=== PATIENT | male | born 1945 | race Asian ===

== ENCOUNTER 2017-02-06 20:21 | Outpatient (CLI) | payer OTHER ==
[~2017-02-06 20:21] MED LIST: ACYCLOVIR800 MG OR; CIPRO250 MG PO; CRESTOR5 MG PO; LISI20TA24 PO
== END 2017-02-06 20:27 | disposition short-term general hospital (02) ==
LOC: AMB 20:21
DX: R40.20 Unspecified coma (principal)
CPT/HCPCS: A0425; A0427

== ENCOUNTER 2017-02-06 20:30 | Emergency (ER) | payer OTHER ==
[~2017-02-06] VITALS: Ht 170.2 cm; Wt 66.7 kg
[2017-02-06 21:11] LABS: PLATELET COUNT 182 K/uL (142-355)
[2017-02-06 21:22] LABS: PARTIAL THROMBOPLASTIN TIME 22.6 SECONDS (24.5-33.6)
[2017-02-06 21:24] LABS: POTASSIUM 3.6 mmol/L (3.6-5.2); SODIUM 133 mmol/L (136-145)
[2017-02-06 22:38] VITALS: BP 184/95; TEMP 98.7
== END 2017-02-06 22:38 | disposition home or self-care (01) ==
LOC: ED 20:30
DX: F10.129 Alcohol abuse with intoxication, unspecified (principal); S42.295A Other nondisplaced fracture of upper end of left humerus, initial encounter for closed fracture; R00.0 Tachycardia, unspecified
CPT/HCPCS: 80053; 80307; 80320; 81000; 82550; 82553; 84484; 85027; 85610; 85730; 93005; 96360; 99284; G0479

== ENCOUNTER 2017-04-21 09:07 | Outpatient (CLI) | payer OTHER | END 2017-04-21 10:15 | disposition home or self-care (01) | LOC: LABW 09:07 | PROVIDERS: Nurse Practitioner Adult Health | DX: I25.10 Atherosclerotic heart disease of native coronary artery without angina pectoris (principal); E78.2 Mixed hyperlipidemia | CPT/HCPCS: 36415; 80061; 80076 ==

== ENCOUNTER 2017-09-11 22:34 | Outpatient (CLI) | payer OTHER ==
[2017-09-11] MEDS ORDERED: AMLO2.5T PO (23:00)
== END 2017-09-11 22:40 | disposition short-term general hospital (02) ==
LOC: AMB 22:34
DX: R40.4 Transient alteration of awareness (principal)
CPT/HCPCS: A0425; A0427

== ENCOUNTER 2017-09-11 22:45 | Emergency (ER) | payer OTHER ==
[~2017-09-11] VITALS: Ht 172.7 cm; Wt 65.8 kg
[2017-09-11] MEDS ORDERED: AMLO2.5T PO (23:00)
[2017-09-11 23:27] LABS: PLATELET COUNT 150 K/uL (142-355)
[2017-09-11 23:34] LABS: POTASSIUM 3.9 mmol/L (3.6-5.2)
[2017-09-12 01:05] VITALS: BP 138/75; TEMP 97.3
== END 2017-09-12 01:05 | disposition home or self-care (01) ==
LOC: ED 22:45
DX: F10.10 Alcohol abuse, uncomplicated (principal)
CPT/HCPCS: 36415; 80053; 80307; 80320; 81000; 85027; 93005; 96360; 96374; 96375; 99284; G0479; J3411

== ENCOUNTER 2018-11-02 09:21 | Outpatient (CLI) | payer OTHER ==
[~2018-11-02 09:21] MED LIST changes: +AMLO2.5T PO
== END 2018-11-02 21:33 | disposition home or self-care (01) ==
LOC: LABW 09:21
PROVIDERS: Nurse Practitioner Adult Health
DX: I25.10 Atherosclerotic heart disease of native coronary artery without angina pectoris (principal); E78.2 Mixed hyperlipidemia; Z79.899 Other long term (current) drug therapy
CPT/HCPCS: 36415; 80061; 80076

== ENCOUNTER 2019-01-17 11:27 | Outpatient (CLI) | payer OTHER | END 2019-01-17 22:48 | disposition home or self-care (01) | LOC: RESP 11:27 | DX: R00.2 Palpitations (principal); I65.29 Occlusion and stenosis of unspecified carotid artery | CPT/HCPCS: 93225 ==

== ENCOUNTER 2019-01-24 08:50 | Outpatient (CLI) | payer OTHER | END 2019-01-24 21:03 | disposition home or self-care (01) | LOC: US 08:50 | DX: R00.2 Palpitations (principal); I65.29 Occlusion and stenosis of unspecified carotid artery ==

== ENCOUNTER 2019-02-07 08:58 | Outpatient (CLI) | payer OTHER | END 2019-02-07 23:18 | disposition home or self-care (01) | LOC: LABW 08:58 | PROVIDERS: Nurse Practitioner Adult Health | DX: I25.10 Atherosclerotic heart disease of native coronary artery without angina pectoris (principal); E78.2 Mixed hyperlipidemia; Z79.899 Other long term (current) drug therapy | CPT/HCPCS: 36415; 80061; 80076 ==

== ENCOUNTER 2021-02-17 11:07 | Outpatient (CLI) | payer OTHER | END 2021-02-17 19:46 | disposition home or self-care (01) | LOC: LABW 11:07 | PROVIDERS: ATTEND Nurse Practitioner | DX: I25.10 Atherosclerotic heart disease of native coronary artery without angina pectoris (principal); Z79.899 Other long term (current) drug therapy | CPT/HCPCS: 36415; 80061; 80076 ==

== ENCOUNTER 2021-08-08 10:02 | Outpatient (CLI) | payer OTHER | END 2021-08-08 19:41 | disposition home or self-care (01) | LOC: RESP 10:02 | PROVIDERS: ATTEND Nurse Practitioner | DX: I25.10 Atherosclerotic heart disease of native coronary artery without angina pectoris (principal); I25.5 Ischemic cardiomyopathy; I10 Essential (primary) hypertension ==

== ENCOUNTER 2022-05-05 08:38 | Outpatient (CLI) | payer OTHER ==
[~2022-05-05] VITALS: Ht 172.7 cm; Wt 47.6 kg
== END 2022-05-05 18:50 | disposition home or self-care (01) ==
LOC: NM 08:38
PROVIDERS: ATTEND Specialist
DX: I25.5 Ischemic cardiomyopathy (principal); I25.10 Atherosclerotic heart disease of native coronary artery without angina pectoris; I10 Essential (primary) hypertension
CPT/HCPCS: A9500; J2785

== ENCOUNTER 2022-11-19 10:52 | Emergency (ER) | payer OTHER ==
[~2022-11-19] VITALS: Ht 170.2 cm; Wt 49.9 kg
[2022-11-19 11:00] VITALS: TEMP 98.6
[2022-11-19] MEDS ORDERED: MELOXICAM7.5 MG PO (13:32)
[2022-11-19 13:43] VITALS: BP 148/81
== END 2022-11-19 13:43 | disposition home or self-care (01) ==
LOC: ED 10:52
DX: S70.01XA Contusion of right hip, initial encounter (principal); Z96.641 Presence of right artificial hip joint; W18.39XA Other fall on same level, initial encounter; Y92.090 Kitchen in other non-institutional residence as the place of occurrence of the external cause
CPT/HCPCS: 96372; 99283; J1885